=== PATIENT | male | born 1960 | race Caucasian/White ===

== ENCOUNTER → 2019-11-06 | Outpatient (CLI) | payer OTHER ==
--- NOTE | 2019-11-06 10:04 | Diagnostic Imaging Report ---
PROCEDURE: MRI left upper extremity without contrast. TECHNIQUE: Multiplanar, multisequence non contrast-enhanced MRI of the left upper extremity was accomplished. INDICATION: Fall on September 29 with injury and pop in the left upper arm and left shoulder. COMPARISON: None. FINDINGS: No acute fracture is seen in the left shoulder. There are moderate degenerative changes in the left acromioclavicular joint. No significant joint effusion is seen. The supraspinatus tendon demonstrates a full-thickness tear distally measuring approximately 1 cm in width, with adjacent high-grade partial-thickness tearing. There is tendinosis of the infraspinatus tendon with no high-grade partial-thickness or full-thickness tear. There is tendinosis of the subscapularis tendon with tiny low-grade partial-thickness tears at the insertion, but no high-grade partial-thickness or full-thickness tears. The teres minor tendon is intact. No significant muscular atrophy is seen. The long head of the biceps tendon demonstrates split tearing proximally (image 16, series 4), but does appear to be contiguous. The glenoid labrum is suboptimally evaluated in absence of intra-articular contrast, but no para-labral cysts are seen. The acromion has a curved undersurface without hooking. The coracoclavicular and coracoacromial ligaments are intact. There is a small amount of fluid in the subacromial/subdeltoid bursa, likely due to the rotator cuff tear. IMPRESSION: 1. Small full-thickness tear of the left anterior supraspinatus tendon. No muscular atrophy is seen. 2. Tendinosis of the infraspinatus and subscapularis tendons. 3. Longitudinal split tear of the proximal long head of the biceps tendon. 4. Moderate degenerative changes in the left acromioclavicular joint. Dictated by: Dictated on workstation # [id number]
== END ==
LOC: RAD 08:36
PROVIDERS: ATTEND Nurse Practitioner
DX: S46.012A Strain of muscle(s) and tendon(s) of the rotator cuff of left shoulder, initial encounter (principal); S46.112A Strain of muscle, fascia and tendon of long head of biceps, left arm, initial encounter; M19.012 Primary osteoarthritis, left shoulder; M66.822 Spontaneous rupture of other tendons, left upper arm
CPT/HCPCS: 73218